=== PATIENT | female | born 1975 | race Caucasian/White ===

== ENCOUNTER 2019-07-27 00:45 | Emergency (ER) | payer SELFPAY ==
[~2019-07-27] VITALS: Ht 160 cm; Wt 108.0 kg
--- NOTE | 2019-07-27 01:28 | PHYS DOC ---
Past History Past Medical History: Depression Past Surgical History: Other Additional Past Surgical Histo: PFO surgery Alcohol Use: Occasionally Drug Use: None Adult General HPI HPI Patient is a 43-year-old female presents with bilateral lower extremity swelling that has been going on for the past 2 months and getting worse over time. Patient noted some bruising around her ankle today. Denies any trauma. Denies any shortness of breath. Denies any chest pain. She has a history of PFO surgery at around 26 years old. She takes ibuprofen and acetaminophen as needed for aches and pains. She has not seen any other physician for this leg swelling in the past 2 months. Nothing seems to make it better or worse. Patient denies any PE risk factors.[] Review of Systems Review of Systems Constitutional: Denies fever or chills [] Eyes: Denies change in visual acuity, redness, or eye pain [] HENT: Denies nasal congestion or sore throat [] Respiratory: Denies cough or shortness of breath [] Cardiovascular: No chest pain or palpitations[] GI: Denies abdominal pain, nausea, vomiting, bloody stools or diarrhea [] : Denies dysuria or hematuria [] Musculoskeletal: Denies back pain or joint pain [] Integument: Denies rash or skin lesions [] Neurologic: Denies headache, focal weakness or sensory changes [] Endocrine: Denies polyuria or polydipsia [] All other systems were reviewed and found to be within normal limits, except as documented in this note. Physical Exam Physical Exam Constitutional: Well developed, well nourished, no acute distress, non-toxic appearance. [] HENT: Normocephalic, atraumatic, bilateral external ears normal, oropharynx moist, no oral exudates, nose normal. [] Eyes: PERRLA, EOMI, conjunctiva normal, no discharge. [] Neck: Normal range of motion, no tenderness, supple, no stridor. [] Cardiovascular:Heart rate regular rhythm, no murmur [] Lungs & Thorax: Bilateral breath sounds clear to auscultation [] Abdomen: Bowel sounds normal, soft, no tenderness, no masses, no pulsatile masses. [] Skin: Warm, dry, no erythema, no rash. [] Back: No tenderness, no CVA tenderness. [] Extremities: No tenderness, no cyanosis, no clubbing, ROM intact, pretibial edema is present bilateral lower extremities, bruising is noted around the left ankle without any tenderness to palpation. There is no laxity of the left ankle joint.. [] Neurologic: Alert and oriented X 3, normal motor function, normal sensory function, no focal deficits noted. [] Psychologic: Affect normal, judgement normal, mood normal. [] EKG EKG [] Radiology/Procedures Radiology/Procedures [] Course & Med Decision Making Course & Med Decision Making Pertinent Labs and Imaging studies reviewed. (See chart for details) ED course: Patient arrived, was placed in bed, and tolerated exam well. She was given tramadol for her discomfort which did not completely eliminate her discomfort. After the return of laboratory testing, this was discussed with the patient who voiced understanding. All questions were answered. She was discharged in improved condition. Medical decision making: There is no evidence of significant congestive heart failure. No evidence of significant electrolyte abnormality. Despite reporting no narcotic pain medicine have been taken her drug screen was positive for opiates. Concerned about possible drug-seeking behavior. There is no evidence of a bleeding diathesis. No evidence of DVT.[] Dragon Disclaimer Dragon Disclaimer This electronic medical record was generated, in whole or in part, using a voice recognition dictation system. Departure Departure: Impression: Primary Impression: Bilateral lower extremity edema Disposition: HOME, SELF-CARE Condition: IMPROVED Patient Instructions: Peripheral Edema Additional Instructions: Avoid added salt in your diet. Follow-up with your regular doctor in 2 days. Do not use any drugs or medicines that are not prescribed for you, they may kill you! Take the medication as prescribed. If you do not have regular doctor list of local clinics will be provided for you. Return to the emergency department if difficulty breathing or any other concerns. Scripts Meloxicam (MELOXICAM) 7.5 Mg Tablet 7.5 MG PO DAILY for PAIN, #20 TAB Prov: MUSTAPHA BHATTI DO 07/27/19 Furosemide (LASIX) 20 Mg Tablet 1 TAB PO DAILY for PERIPHERAL EDEMA, #5 TAB 0 Refills Prov: MUSTAPHA BHATTI DO 07/27/19 MUSTAPHA BHATTI DO Jul 27, 2019 01:28
[2019-07-27] MEDS ORDERED: traMADol 50 MG TABLET PO ONE (02:30)
[2019-07-27 02:33] LABS: BASO # 0.1 x10^3/uL (0.0-0.2); BASO % 1 % (0-3); EOS # 0.1 x10^3/uL (0.0-0.7); EOS % 1 % (0-3); HEMATOCRIT 43.7 % (36.0-47.0); HEMOGLOBIN 14.5 g/dL (12.0-15.5); LYMPH # 2.2 x10^3/uL (1.0-4.8); LYMPH % 24 % (24-48); MEAN CORPUSCULAR HEMOGLOBIN 30 pg (25-35); MEAN CORPUSCULAR HGB CONC 33 g/dL (31-37); MEAN CORPUSCULAR VOLUME 89 fL (79-100); MONO # 0.6 x10^3/uL (0.0-1.1); MONO % 6 % (0-9); NEUT # 6.1 x10^3uL (1.8-7.7); NEUT % 67 % (31-73); PLATELET COUNT 270 x10^3/uL (140-400); RED BLOOD COUNT 4.91 x10^6/uL (3.50-5.40); RED CELL DISTRIBUTION WIDTH 14.9 % (11.5-14.5); WHITE BLOOD COUNT 9.1 x10^3/uL (4.0-11.0)
[2019-07-27 02:35] LABS: CALCIUM 9.1 mg/dL (8.5-10.1); CREATININE 0.7 mg/dL (0.6-1.0); GFR 91.3; POTASSIUM 3.7 mmol/L (3.5-5.1)
[2019-07-27 02:42] LABS: BARBITURATES NEG (NEG); BENZODIAZEPINES NEG (NEG); CANNABINOIDS NEG (NEG); COCAINE NEG (NEG); METHADONE NEG (NEG); OPIATES POS (NEG); PHENCYCLIDINE NEG (NEG)
[2019-07-27 02:44] LABS: AMPHETAMINE/METHAMPHETAMINE NEG (NEG)
[2019-07-27 02:57] LABS: BACTERIA,URINE 0 /HPF (0-FEW); BILIRUBIN,URINE NEG (NEG); CLARITY,URINE CLEAR; COLOR,URINE YELLOW; GLUCOSE,URINE NEG (NEG); NITRITE,URINE NEG (NEG); RBC,URINE 0 /HPF (0-2); SQUAMOUS EPITHELIAL CELL,UR OCC /LPF; UROBILINOGEN,URINE 0.2 mg/dL (0.2 mg/dL); WBC,URINE OCC /HPF (0-4)
[2019-07-27 03:03] VITALS: BP 130/78
[2019-07-27] MEDS ORDERED: MELO7.5T29 PO (03:04)
[2019-07-27] MEDS ORDERED: FURO-69 PO (03:04)
== END 2019-07-27 03:15 | disposition home or self-care (01) ==
LOC: ER 00:45
DX: S90.02XA Contusion of left ankle, initial encounter (principal); R22.43 Localized swelling, mass and lump, lower limb, bilateral; X58.XXXA Exposure to other specified factors, initial encounter; Y92.89 Other specified places as the place of occurrence of the external cause; Y93.89 Activity, other specified; Y99.8 Other external cause status
CPT/HCPCS: 36415; 80048; 80307; 81001; 83880; 85025; 85610; 99284